=== PATIENT | female | born 1990 | race Two or more races ===

== ENCOUNTER → 2018-02-27 | Outpatient (CLI) | payer OTHER ==
[2018-02-27 10:43] LABS: UA SPECIFIC GRAVITY 1.015 (1.005-1.035); microscopic required? YES; urine erythrocyte TRACE (NEGATIVE)
[2018-02-27 10:44] LABS: BASOPHIL % 0.4 % (0-2); PLATELET COUNT 388 x10^3mcL (130-400); RED CELL DISTRIBUTION WIDTH 13.6 % (11.5-14.5)
[2018-02-27 10:53] LABS: ALBUMIN 4.1 g/dL (3.4-5.0); ALKALINE PHOSPHATASE 67 U/L (46-116); ALT/SGPT 28 U/L (14-59); AST/SGOT 23 U/L (15-37); CARBON DIOXIDE 28.7 mmol/L (21-32); CHLORIDE SERUM 102 mmol/L (98-107); CREATININE SERUM 0.6 mg/dL (0.6-1.0); GFR1 > 60 mL/min; GLUCOSE SERUM 82 mg/dL (74-106); SODIUM SERUM 138 mmol/L (136-145); TRIGLYCERIDES 35 mg/dL (<150)
[2018-02-27 11:01] LABS: CHOLESTEROL 207 mg/dL (<200); HDL CHOLESTEROL 103 mg/dL (40-60)
== END | disposition home or self-care (01) ==
LOC: LB 09:40
PROVIDERS: Family Medicine Geriatric Medicine
DX: Z13.228 Encounter for screening for other metabolic disorders (principal); Z13.1 Encounter for screening for diabetes mellitus; Z13.0 Encounter for screening for diseases of the blood and blood-forming organs and certain disorders involving the immune mechanism; Z13.220 Encounter for screening for lipoid disorders; Z13.29 Encounter for screening for other suspected endocrine disorder

== ENCOUNTER → 2019-02-28 | Outpatient (CLI) | payer OTHER ==
[2019-02-28 16:45] LABS: microscopic required? NO
[2019-02-28 16:54] LABS: UA SPECIFIC GRAVITY <=1.005 (1.005-1.035); urine erythrocyte NEGATIVE (NEGATIVE)
[2019-02-28 16:57] LABS: BASOPHIL % 0.3 % (0-2); RED CELL DISTRIBUTION WIDTH 13.3 % (11.5-14.5)
[2019-02-28 16:59] LABS: PLATELET COUNT 406 x10^3mcL (130-400)
[2019-02-28 17:19] LABS: ALBUMIN 4.2 g/dL (3.4-5.0); ALKALINE PHOSPHATASE 62 U/L (46-116); ALT/SGPT 30 U/L (14-59); AST/SGOT 24 U/L (15-37); BILIRUBIN TOTAL 1.25 mg/dL (0.20-1.00); CALCIUM 9.6 mg/dL (8.5-10.1); CHLORIDE SERUM 99 mmol/L (98-107); CREATININE SERUM 0.6 mg/dL (0.6-1.0); GFR1 > 60 mL/min; GLUCOSE SERUM 86 mg/dL (74-106); SODIUM SERUM 135 mmol/L (136-145); TOTAL PROTEIN, SERUM 8.1 g/dL (6.4-8.2); TRIGLYCERIDES 42 mg/dL (<150)
[2019-02-28 17:20] LABS: CHOLESTEROL 234 mg/dL (<200); CHOLESTEROL/HDL RATIO 2.1; HDL CHOLESTEROL 110 mg/dL (40-60)
== END | disposition home or self-care (01) ==
LOC: LB 16:14
DX: Z13.29 Encounter for screening for other suspected endocrine disorder (principal); Z11.3 Encounter for screening for infections with a predominantly sexual mode of transmission; Z13.228 Encounter for screening for other metabolic disorders; Z13.21 Encounter for screening for nutritional disorder; Z13.1 Encounter for screening for diabetes mellitus; Z13.0 Encounter for screening for diseases of the blood and blood-forming organs and certain disorders involving the immune mechanism; Z13.220 Encounter for screening for lipoid disorders; Z72.51 High risk heterosexual behavior
CPT/HCPCS: 82652; 84439; 87491; 87591

== ENCOUNTER → 2019-03-15 | Outpatient (CLI) | payer OTHER ==
[2019-03-15 17:13] LABS: FREE T4 1.1 ng/dL (0.76-1.46)
== END | disposition home or self-care (01) ==
LOC: LB 16:25
DX: Z13.29 Encounter for screening for other suspected endocrine disorder (principal); Z11.3 Encounter for screening for infections with a predominantly sexual mode of transmission; Z13.228 Encounter for screening for other metabolic disorders; Z13.21 Encounter for screening for nutritional disorder; Z13.1 Encounter for screening for diabetes mellitus; Z13.0 Encounter for screening for diseases of the blood and blood-forming organs and certain disorders involving the immune mechanism; Z13.220 Encounter for screening for lipoid disorders; Z72.51 High risk heterosexual behavior
CPT/HCPCS: 84439